=== PATIENT | male | born 1985 | race Caucasian/White ===

== ENCOUNTER 2019-02-04 12:17 | Emergency (ER) | payer OTHER ==
[~2019-02-04] VITALS: Ht 182.9 cm; Wt 94.0 kg
[~2019-02-04 12:17] MED LIST: IBUP-1542 PO
[2019-02-04 12:21] VITALS: BP 126/61; PULSE 60; RESP 18; Ht 182.9 cm; Wt 94.0 kg
== END 2019-02-04 12:35 | disposition home or self-care (01) ==
LOC: FTE 12:17
DX: Z48.02 Encounter for removal of sutures (principal)
CPT/HCPCS: 99281